=== PATIENT | female | born 1950 | race Caucasian/White ===

== ENCOUNTER → 2016-11-19 | Outpatient (CLI) | payer OTHER, MEDICARE | LOC: BMCIMAGING 08:29 | PROVIDERS: ATTEND Internal Medicine Rheumatology | DX: M25.551 Pain in right hip (principal) | CPT/HCPCS: 82784-90; 83516-90; 86618-90 ==

== ENCOUNTER → 2017-02-04 | Outpatient (CLI) | payer OTHER, MEDICARE | LOC: BMCIMAGING 09:25 | PROVIDERS: ATTEND Internal Medicine Rheumatology | DX: R52 Pain, unspecified (principal) ==

== ENCOUNTER → 2017-06-19 | Outpatient (CLI) | payer OTHER, MEDICARE | LOC: BMCIMAGING 07:13 | PROVIDERS: ATTEND Internal Medicine | DX: Z12.31 Encounter for screening mammogram for malignant neoplasm of breast (principal); Z80.3 Family history of malignant neoplasm of breast | CPT/HCPCS: G0202 ==

== ENCOUNTER → 2018-07-05 | Outpatient (CLI) | payer OTHER, MEDICARE | LOC: BMCIMAGING 08:41 | PROVIDERS: ATTEND Internal Medicine | DX: Z12.31 Encounter for screening mammogram for malignant neoplasm of breast (principal); Z80.3 Family history of malignant neoplasm of breast ==